=== PATIENT | male | born 1975 | race Caucasian/White ===

== ENCOUNTER 2016-05-09 09:27 | Emergency (ER) | payer BC ==
[2016-05-09 09:38] VITALS: BP 130/79
[2016-05-09 10:10] LABS: Hematocrit 48.8 % (42.0-52.0); Mean Cell Volume 89.1 fl (78-100); Mean Corpuscular Hgb Conc 34.8 g/dl (32-36); Mean Platelet Volume 10.7 fl (6.0-9.5); Neutrophil # 6.2 K/mm3 (1.3-6.0); Neutrophil % 67.7 % (42-75.0); Platelet Count 191 K/mm3 (150-450); Red Blood Count 5.48 M/mm3 (4.7-6.0); Red Cell Distribution Width 13.2 % (11.5-14.0); White Blood Count 9.2 K/mm3 (4.0-10.5)
[2016-05-09 10:16] LABS: Urine Appearance Clear; Urine Bacteria 1+; Urine Bilirubin Negative (NEGATIVE); Urine Blood Negative /ul (NEGATIVE); Urine Color Yellow; Urine Ketone Negative (NEGATIVE); Urine Nitrite Negative (NEGATIVE); Urine Protein Negative (NEGATIVE); Urine RBC None Seen /hpf (0-5); Urine Urobilinogen Normal (NORMAL); Urine WBC None Seen /hpf (0-5); Urine pH 7.5 pH (5.0-7.0)
[2016-05-09 10:26] LABS: Albumin * 4.3 gm/dl (3.4-5.0); Anion Gap 11.9 mmol/L (6.8-13.8); BUN/Creatinine Ratio 17.2 (9.0-21.6); Bilirubin, Total 0.3 mg/dL (0.0-1.1); Ca. Corrected For Albumin 9.2 mg/dL (8.4-10.2); Calcium * 9.8 mg/dL (7.9-10.9); Potassium 3.9 mmol/L (3.4-4.6)
--- NOTE | 2016-05-09 12:25 | ERNOTE ---
Abdominal HPI - Narrative Date of Service: 05/09/16 - General Chief Complaint: Abdominal Pain Time Seen by Provider: 05/09/16 09:39 Source: patient Exam Limitations: no limitations - Immun/Allergies/Home Medications Allergies/Adverse Reactions: Allergies No Known Allergies Allergy (Verified 05/09/16 09:38) Home Medications: HOME MEDICATIONS Dicyclomine HCl [Bentyl] 10 mg PO TID PRN #10 tab 05/09/16 [Last Taken Unknown] - History of Present Illness Narrative: patient presents to the ED for abdominal and back pain. Mostly left back and abdominal pain. Off and on for a while but more frequent for the last 3 days. Will come and go and wax and wane. No fever or vomiting. No dysuria. No diarrhea. Has had some mild constipation. Nothing clearly makes this better or worse. Has not seen anyone else for this. Timing: intermittent Quality: moderate Activities at Onset: none Modifying Factors - (Improves): Present: other - nothing Modifying Factors - (Worsens): Present: other - nothign Associated Symptoms: Absent: denies symptoms, chest pain, fever/chills, shortness of breath Review of Systems - Review of Systems Constitutional: Absent: fever Respiratory: Absent: shortness of breath Cardiology: Absent: chest pain Gastrointestinal/Abdominal: Present: See HPI Genitourinary: Present: other - Patient relates what he thought to be jock itch on his penis, he relates he used something and it went away but came back, itchy.. Absent: dysuria Neurological: Present: no symptoms reported - Patient's Past Medical History Patient History - Medical: Other - Family History Mother Family History - Cancer: Cervical Father Family History - Medical: History Unknown - Social History Living Situations: home Smoking Status: Current every day smoker Have you smoked in the past 12 months: Yes Do you dip or chew tobacco: No Alcohol Use: none Drug Use: none Physical Exam - Physical Exam General Appearance: Present: alert, no apparent distress Eye Exam: Normal inspection: bilateral, PERRL: bilateral Ears, Nose, Throat: Present: normal ENT inspection Neck: Present: normal inspection Respiratory: Present: no respiratory distress, normal breath sounds, lungs clear Cardiovascular/Chest: Present: regular rate, rhythm Gastrointestinal/Abdominal: Present: normal bowel sounds, nondistended, soft, other - Mild tendenrss mid abdomen and left mid abdomen. no guarding or rebound , no peritoneal signs. Male Genitals Exam: Present: other - there is some patch dry sckin the uthe top of the shaft and head of the penis. This may be tinea, etiology unclear.. Absent: scrotum tenderness (R), testicular tenderness (R) Back Exam: Absent: normal range of motion, no CVA tenderness Extremity Exam: Present: normal inspection Neurological Exam: Present: alert, normal mood/affect, no motor/sensory deficits ED Progress - Results and Orders Patient's Lab Results:: I have reviewed the patient's lab results. - Vital Signs Patient's Vital Signs:: I have reviewed the patient's vital signs. Vital Signs: Vital Signs 05/09/16 09:33 Temperature 36.5 C Pulse Rate 74 Respiratory 14 Rate Blood Pressure 130/79 O2 Sat by Pulse 100 Oximetry - X-Ray X-Ray #1 X-Ray: abdomen Interpretation: Reviewed by me X-ray Comments: Reviewed official report - CT/Ultrasound CT/Ultrasound Narrative: I reviewed CT report. - Progress/Reassessment Chief Complaint: Abdominal Pain Progress Note-Subjective: 05/09/16 12:21 Patient feeling improved. No clear etiology of the pain. no kidney stone or diverticulitis. I stressed the need for close f/u. i told himn to use anti fungal foor now on his penis but that this would most certainly need re-check and close f/u I discussed warning signs and reason s to return as well as the need for close f/u. Departure - Departure Clinical Impression: Abdominal pain Disposition: Home self-care Condition: Stable Instructions: Abdominal Pain, Adult, [id number] Additional Instructions: You need to re-check with a doctor next week. Medications as directed. Return for increased pain ,fever, vomiting or if your condition worsens or changes in any way. Prescriptions: Dicyclomine HCl [Bentyl] 10 mg PO TID PRN #10 tab PRN Reason: Pain
== END 2016-05-09 12:30 | disposition home or self-care (01) ==
LOC: ER 09:27
DX: R10.9 Unspecified abdominal pain (principal); F17.210 Nicotine dependence, cigarettes, uncomplicated